=== PATIENT | male | born 1940 | race Caucasian/White ===

== ENCOUNTER → 2017-05-22 | Outpatient (CLI) | payer MEDICAID, OTHER ==
[~2017-05-22] MED LIST: ACET-2123 PO; ALPR-410 PO; ASPI-1093 PO; GLIP5 PO; INSLAN SQ; METF-515 PO; OMEP20 PO; VALS320T2 PO
== END | disposition home or self-care (01) ==
LOC: RADPV 08:15
PROVIDERS: ATTEND Internal Medicine Cardiovascular Disease
DX: I08.0 Rheumatic disorders of both mitral and aortic valves (principal); I63.9 Cerebral infarction, unspecified; I65.23 Occlusion and stenosis of bilateral carotid arteries
CPT/HCPCS: 93306; 93880